=== PATIENT | male | born 1955 | race Caucasian/White ===

== ENCOUNTER 2021-03-10 08:32 | Day surgery (SDC) | payer MEDICARE ==
[2021-03-10] VITALS (17 sets, daily range): BP systolic 116–168; BP diastolic 74–106
[~2021-03-10] VITALS: Ht 190.5 cm; Wt 104.5 kg
[2021-03-10] MEDS ORDERED: albumin 25% 100mL bottle x 1 IV PRN (08:55)
[2021-03-10] MEDS ORDERED: normal saline 1000ml 1,000 ML IV PRN (09:00)
[2021-03-10] MEDS ORDERED: OLME40TA18 PO (09:18)
[2021-03-10] MEDS ORDERED: BACL10TA2 PO (09:18)
[2021-03-10] MEDS ORDERED: B-CO1TAB PO (09:18)
[2021-03-10] MEDS ORDERED: TRAM50TA2 PO (09:18)
[2021-03-10] MEDS ORDERED: FERR-119 PO (09:18)
[2021-03-10] MEDS ORDERED: POLY17PO10 PO (09:18)
[2021-03-10] MEDS ORDERED: SIMV-45 PO (09:18)
[2021-03-10] MEDS ORDERED: PRED20TA PO (09:18)
[2021-03-10] MEDS ORDERED: MULT-661 PO (09:18)
[2021-03-10] MEDS ORDERED: GABA600T13 PO (09:18)
[2021-03-10] MEDS ORDERED: APIX5TAB3 PO (09:18)
[2021-03-10] MEDS ORDERED: LACT1TAB6 PO (09:18)
[2021-03-10] MEDS ORDERED: METO200T49 PO (09:18)
[2021-03-10] MEDS ORDERED: FOLI0.4T6 PO (09:18)
[2021-03-10] MEDS ORDERED: PREG100C55 PO (09:18)
[2021-03-10] MEDS ORDERED: CALCIUM CARBONATE PO (09:18)
[2021-03-10] MEDS ORDERED: ZOLP12.543 PO (09:18)
[2021-03-10] MEDS ORDERED: FLUT1AER PO (09:18)
[2021-03-10] MEDS ORDERED: ALBU6.7H9 INH (09:18)
[2021-03-10] MEDS ORDERED: LIDOcaine 1% (10mg/ml) 2ml vial ONE (13:00)
[2021-03-10] MEDS ORDERED: midazolam 1 mg/ML 2ml injection ONE (13:00)
[2021-03-10] MEDS ORDERED: fentaNYL/PF 50MCG/1 ML 2ML syringe ONE (13:01)
== END 2021-03-10 16:45 | disposition home or self-care (01) ==
LOC: SSTAY O 08:32
PROVIDERS: ATTEND Radiology Vascular & Interventional Radiology
DX: R91.1 Solitary pulmonary nodule (principal); I10 Essential (primary) hypertension; E78.5 Hyperlipidemia, unspecified; J45.909 Unspecified asthma, uncomplicated; G62.9 Polyneuropathy, unspecified; Z86.711 Personal history of pulmonary embolism; Z86.718 Personal history of other venous thrombosis and embolism; Z96.653 Presence of artificial knee joint, bilateral; Z98.890 Other specified postprocedural states; Z79.899 Other long term (current) drug therapy; Z79.01 Long term (current) use of anticoagulants
CPT/HCPCS: 32408; 71045; 88305; 88360; 99152; 99153; J2250; J3010; J3490; 77012

== ENCOUNTER 2023-12-28 16:53 | Inpatient (IN) | payer MEDICARE ==
[~2023-12-28] VITALS: Ht 190.5 cm; Wt 110.0 kg
[~2023-12-28 16:53] MED LIST: ALBU6.7H14 INH; APIX5TAB3 PO; ASPI81TA53 PO; BACL10TA2 PO; DULO-31 PO; ESOM40CA49 PO; FLUT1AER PO; GABA-1405 PO; LACT1TAB6 PO; LOP25T PO; NORT10CA81 PO; OLME40TA18 PO; SIMV-45 PO; ZOLP12.570 PO
[2023-12-28 17:35] LABS: BASOPHILS % (AUTO) 0.1 % (0-1); EOSINOPHILS % (AUTO) 0.1 % (0-6); HEMATOCRIT 41.2 % (42.0-52.0); HEMOGLOBIN 13.9 g/dl (14.0-17.9); LYMPHOCYTES # (AUTO) 0.7 X10'3 (1.1-4.8); LYMPHOCYTES % (AUTO) 5.6 % (21-51); MEAN CORPUSCULAR HEMOGLOBIN 31.3 PG (27.0-31.0); MEAN CORPUSCULAR HGB CONC 33.7 g/dL (33.0-36.5); MEAN PLATELET VOLUME 10.4 FL (7.4-10.4); MONOCYTES # (AUTO) 0.1 X10'3 (0-0.9); MONOCYTES % (AUTO) 0.6 % (2-12); NEUTROPHILS # (AUTO) 12.1 X10'3 (1.8-7.7); NEUTROPHILS % (AUTO) 93.6 % (42-75); PLATELET COUNT 147 X10'3 (140-440); RED BLOOD COUNT 4.43 X10'6 (4.70-6.10); RED CELL DISTRIBUTION WIDTH 14.2 % (11.5-14.5); WHITE BLOOD COUNT 12.9 X10'3 (4.5-11.0)
[2023-12-28 18:17] LABS: BILIRUBIN,URINE NEGATIVE (Neg); CLARITY,URINE SLIGHTLY CLOUDY (Clear); COLOR,URINE YELLOW (Yellow); GLUCOSE, URINE >=1000 mg/dl (Neg); KETONES,URINE TRACE mg/dl (Neg); LEUKOCYTE ESTERASE ,URINE NEGATIVE (Neg); NITRITES, URINE NEGATIVE (Neg); OCCULT BLOOD,URINE LARGE (Neg); PH,URINE 5.5 (4.8-8.0); PROTEIN,URINE NEGATIVE (Neg); UROBILINOGEN,URINE 0.2 E.U/dL (0.2-1.0)
[2023-12-28 18:24] LABS: UA COLLECTION TYPE STRAIGHT CATH
[2023-12-28 18:25] LABS: SQUAMOUS EPITHELIAL CELL,UR NONE SEEN /LPF (FEW)
[2023-12-28 18:26] LABS: BACTERIA,URINE NONE SEEN /HPF (Neg); RBC,URINE 50-100 /HPF (0-2)
[2023-12-28 18:26] LABS: ALBUMIN 3.2 G/DL (3.4-5.0); ANION GAP 3 (8-16); BLOOD UREA NITROGEN 21 MG/DL (7-18); BUN/CREATININE RATIO 16.5 (10.0-20.0); CALCIUM 8.2 MG/DL (8.5-10.1); CHLORIDE 101 MMOL/L (99-107); CREATININE 1.27 MG/DL (0.60-1.10); GLUCOSE 211 MG/DL (70-104); POTASSIUM 4.8 MMOL/L (3.5-5.1); SODIUM 135 MMOL/L (135-145); TOTAL CARBON DIOXIDE 30.7 MMOL/L (24-32); eCRCL 65 ML/MIN; eGFR 56 ML/MIN
[2023-12-28 18:35] LABS: APTT 30 SECONDS (22-32); INR 1.1 INR; PROTHROMBIN TIME 11.1 SECONDS (9.0-12.0)
[2023-12-28] MEDS: CefTRIAXone 2gm/D5W 50ml BAG 50 ML IV SCH (18:59)
[2023-12-28] MEDS: normal saline 1000ML IV soln IVB ONE (18:59)
[2023-12-28] MEDS ORDERED: mag hydrox/Alum hydrox/simeth 30ml oral suspension PO PRN (21:15)
[2023-12-28] MEDS ORDERED: potassium Cl 40MEQ/1/2NS 520ml 520 ML IV PRN (21:15)
[2023-12-28] MEDS ORDERED: magnesium sulf-water 2g/50mL 50 ML IV PRN (21:15)
[2023-12-28] MEDS ORDERED: potassium Cl 20 mEq SR tablet PO PRN (21:15)
[2023-12-28] MEDS ORDERED: acetaminophen 325mg tablet PO PRN ×2 (21:15)
[2023-12-28] MEDS ORDERED: magnesium Cl slow-release 64mg tablet PO PRN (21:15)
[2023-12-28] MEDS ORDERED: HYDROcodone/acetaminophen 5mg/325mg tablet PO PRN (21:15)
[2023-12-28] MEDS ORDERED: HYDROcodone/acetaminophen 10/325mg tab PO PRN (21:15)
[2023-12-28] MEDS ORDERED: magnesium sulf-water 4G/100mL 100 ML IV PRN (21:15)
[2023-12-28] MEDS ORDERED: ondansetron/PF 4mg/2ml inj IV PRN (21:15)
[2023-12-28] MEDS: normal saline 1000ml 1,000 ML IV SCH (22:36)
[2023-12-29] VITALS (10 sets, daily range): BP systolic 129–163; BP diastolic 65–97; PULSE 60–93; RESP 16–18; TEMP 98.1–98.7; O2SAT 93–100
[2023-12-29] MEDS: normal saline 1000ml 1,000 ML IV ONE ×2 (01:49→08:45)
[2023-12-29] MEDS ORDERED: FLUT1AER INH (02:06)
[2023-12-29] MEDS ORDERED: CYAN50005 PO (02:09)
[2023-12-29] MEDS ORDERED: ADV50100 INH (02:11)
[2023-12-29] MEDS ORDERED: GABA-1405 PO (02:13)
[2023-12-29] MEDS ORDERED: INDO-12 PO (02:20)
[2023-12-29] MEDS ORDERED: NORT25CA PO (02:26)
[2023-12-29] MEDS ORDERED: METO200T37 PO (02:26)
[2023-12-29] MEDS ORDERED: OXYC10TA47 PO (02:30)
[2023-12-29] MEDS ORDERED: PREG100C56 PO (02:30)
[2023-12-29] MEDS: budesonide 0.5mg/2ml UD nebule IH SCH (07:10)
[2023-12-29] MEDS: albuterol 2.5 MG/3 ML nebule NEB SCH (07:10)
[2023-12-29 07:16] LABS: BASOPHILS % (AUTO) 0.1 % (0-1); EOSINOPHILS % (AUTO) 0 % (0-6); HEMATOCRIT 41.8 % (42.0-52.0); LYMPHOCYTES # (AUTO) 1.2 X10'3 (1.1-4.8); LYMPHOCYTES % (AUTO) 9.1 % (21-51); MEAN CORPUSCULAR HEMOGLOBIN 31.2 PG (27.0-31.0); MEAN CORPUSCULAR HGB CONC 33.6 g/dL (33.0-36.5); MEAN CORPUSCULAR VOLUME 92.9 FL (78-98); MEAN PLATELET VOLUME 9.3 FL (7.4-10.4); MONOCYTES # (AUTO) 0.2 X10'3 (0-0.9); MONOCYTES % (AUTO) 1.1 % (2-12); NEUTROPHILS # (AUTO) 11.9 X10'3 (1.8-7.7); NEUTROPHILS % (AUTO) 89.7 % (42-75); PLATELET COUNT 129 X10'3 (140-440); RED BLOOD COUNT 4.51 X10'6 (4.70-6.10); RED CELL DISTRIBUTION WIDTH 14.1 % (11.5-14.5); WHITE BLOOD COUNT 13.2 X10'3 (4.5-11.0)
[2023-12-29 07:19] LABS: INR 1.1 INR; PROTHROMBIN TIME 11.4 SECONDS (9.0-12.0)
[2023-12-29] MEDS: K and/or MAG REPLACEMENT MC SCH (08:00)
[2023-12-29] MEDS: metoprolol succinate 25mg (24-HOUR) SR. Tablet PO SCH (08:00)
[2023-12-29] MEDS ORDERED: SALMETEROL INH SCH (08:00)
[2023-12-29] MEDS ORDERED: FLUTICASONE INH SCH (08:00)
[2023-12-29 09:24] LABS: ALANINE AMINOTRANSFERASE 26 U/L (12-78); ALBUMIN 3.2 G/DL (3.4-5.0); ALBUMIN/GLOBULIN RATIO 1.1 (1.1-1.5); ALKALINE PHOSPHATASE 51 IU/L (46-116); ANION GAP 9 (8-16); ASPARTATE AMINO TRANSFERASE 13 U/L (10-37); BILIRUBIN,TOTAL 0.4 MG/DL (0.1-1.0); BLOOD UREA NITROGEN 18 MG/DL (7-18); BUN/CREATININE RATIO 17.6 (10.0-20.0); CALCIUM 8.3 MG/DL (8.5-10.1); CHLORIDE 105 MMOL/L (99-107); CREATININE 1.02 MG/DL (0.60-1.10); GLUCOSE 173 MG/DL (70-104); MAGNESIUM 2.1 MG/DL (1.5-2.4); PHOSPHORUS 2.3 MG/DL (2.3-4.5); POTASSIUM 4.1 MMOL/L (3.5-5.1); SODIUM 142 MMOL/L (135-145); TOTAL CARBON DIOXIDE 27.9 MMOL/L (24-32); TOTAL PROTEIN 6.1 G/DL (6.4-8.2); eCRCL 81 ML/MIN; eGFR 72 ML/MIN
[2023-12-29] MEDS: oxyCODONE IR 5mg (immed. release) tablet PO PRN (09:32)
[2023-12-29] MEDS: pregabalin 75mg capsule PO SCH (10:00)
[2023-12-29] MEDS: apixaban 5mg tablet PO SCH (10:00)
[2023-12-29] MEDS: pantoprazole 40mg Tablet.DR PO SCH (10:00)
[2023-12-29] MEDS: pregabalin 25mg capsule PO SCH (10:01)
[2023-12-29] MEDS: duloxetine 30mg CAPSULE.DR PO SCH (10:02)
[2023-12-29] MEDS: gabapentin 300mg capsule PO SCH (10:02)
[2023-12-29] MEDS: losartan 50mg tablet PO SCH (10:02)
[2023-12-29] MEDS: baclofen 10mg tablet PO SCH (10:03)
[2023-12-29] MEDS: ciprofloxacin lact 400MG/200ML 200 ML IV SCH (11:35)
[2023-12-29] MEDS: simvastatin 20mg tablet PO SCH (21:05)
[2023-12-29] MEDS: zolpidem 5mg tablet PO SCH (21:06)
[2023-12-30] MEDS: temazepam 15mg capsule PO ONE (02:09)
[2023-12-30 07:23] LABS: BASOPHILS % (AUTO) 0 % (0-1); EOSINOPHILS % (AUTO) 0.1 % (0-6); HEMATOCRIT 36.9 % (42.0-52.0); HEMOGLOBIN 12.4 g/dl (14.0-17.9); LYMPHOCYTES # (AUTO) 1.1 X10'3 (1.1-4.8); LYMPHOCYTES % (AUTO) 8.8 % (21-51); MEAN CORPUSCULAR HEMOGLOBIN 31.2 PG (27.0-31.0); MEAN CORPUSCULAR HGB CONC 33.6 g/dL (33.0-36.5); MEAN CORPUSCULAR VOLUME 92.8 FL (78-98); MEAN PLATELET VOLUME 10.3 FL (7.4-10.4); MONOCYTES # (AUTO) 0.8 X10'3 (0-0.9); MONOCYTES % (AUTO) 6.7 % (2-12); NEUTROPHILS # (AUTO) 10.5 X10'3 (1.8-7.7); NEUTROPHILS % (AUTO) 84.4 % (42-75); PLATELET COUNT 124 X10'3 (140-440); RED BLOOD COUNT 3.98 X10'6 (4.70-6.10); RED CELL DISTRIBUTION WIDTH 14.4 % (11.5-14.5); WHITE BLOOD COUNT 12.4 X10'3 (4.5-11.0)
[2023-12-30 08:00] VITALS: RESP 16; O2SAT 97
[2023-12-30 08:08] LABS: ALANINE AMINOTRANSFERASE 20 U/L (12-78); ALBUMIN 2.9 G/DL (3.4-5.0); ALBUMIN/GLOBULIN RATIO 1.2 (1.1-1.5); ALKALINE PHOSPHATASE 40 IU/L (46-116); ANION GAP 5 (8-16); ASPARTATE AMINO TRANSFERASE 16 U/L (10-37); BILIRUBIN,TOTAL 0.4 MG/DL (0.1-1.0); BLOOD UREA NITROGEN 15 MG/DL (7-18); BUN/CREATININE RATIO 18.5 (10.0-20.0); CHLORIDE 107 MMOL/L (99-107); CREATININE 0.81 MG/DL (0.60-1.10); GLUCOSE 154 MG/DL (70-104); MAGNESIUM 2.2 MG/DL (1.5-2.4); PHOSPHORUS 2.6 MG/DL (2.3-4.5); POTASSIUM 3.6 MMOL/L (3.5-5.1); SODIUM 140 MMOL/L (135-145); TOTAL CARBON DIOXIDE 28.1 MMOL/L (24-32); TOTAL PROTEIN 5.4 G/DL (6.4-8.2); eCRCL 101 ML/MIN; eGFR > 90 ML/MIN
[2023-12-30] MEDS: thiamine 100mg tablet PO SCH (09:21)
[2023-12-30] MEDS: folic acid 1mg tablet PO SCH (09:23)
[2023-12-30] MEDS: multivitamins, therapeutics tablet PO SCH (09:26)
[2023-12-30 10:00] VITALS: BP 151/87; PULSE 80; RESP 16; TEMP 98.1; O2SAT 97
[2023-12-30 18:00] VITALS: BP 166/99; PULSE 67; RESP 16; TEMP 98.2; O2SAT 95
[2023-12-30 20:00] VITALS: RESP 16; O2SAT 98
[2023-12-30 20:12] VITALS: PULSE 68; RESP 16; O2SAT 98
[2023-12-30 22:00] VITALS: BP 188/98; PULSE 76; RESP 16; TEMP 98.1; O2SAT 98
[2023-12-30] MEDS: hydrALAZINE 20mg/ml inj. IV PRN (23:33)
[2023-12-31 06:00] VITALS: BP 167/97; PULSE 66; RESP 16; TEMP 98.5; O2SAT 98
[2023-12-31 08:00] VITALS: RESP 16; O2SAT 98
[2023-12-31 08:02] LABS: BASOPHILS % (AUTO) 0.2 % (0-1); EOSINOPHILS # (AUTO) 0.1 X10'3 (0-0.9); EOSINOPHILS % (AUTO) 0.8 % (0-6); HEMATOCRIT 43.2 % (42.0-52.0); HEMOGLOBIN 14.7 g/dl (14.0-17.9); LYMPHOCYTES # (AUTO) 1.8 X10'3 (1.1-4.8); LYMPHOCYTES % (AUTO) 15.6 % (21-51); MEAN CORPUSCULAR HEMOGLOBIN 31.4 PG (27.0-31.0); MEAN CORPUSCULAR HGB CONC 34.1 g/dL (33.0-36.5); MEAN CORPUSCULAR VOLUME 92.2 FL (78-98); MEAN PLATELET VOLUME 9.3 FL (7.4-10.4); MONOCYTES # (AUTO) 1.2 X10'3 (0-0.9); MONOCYTES % (AUTO) 10.8 % (2-12); NEUTROPHILS # (AUTO) 8.3 X10'3 (1.8-7.7); NEUTROPHILS % (AUTO) 72.6 % (42-75); PLATELET COUNT 131 X10'3 (140-440); RED BLOOD COUNT 4.68 X10'6 (4.70-6.10); RED CELL DISTRIBUTION WIDTH 14.7 % (11.5-14.5); WHITE BLOOD COUNT 11.5 X10'3 (4.5-11.0)
[2023-12-31 08:39] LABS: ALANINE AMINOTRANSFERASE 23 U/L (12-78); ALBUMIN 3.4 G/DL (3.4-5.0); ALBUMIN/GLOBULIN RATIO 1.2 (1.1-1.5); ALKALINE PHOSPHATASE 49 IU/L (46-116); ANION GAP 7 (8-16); ASPARTATE AMINO TRANSFERASE 18 U/L (10-37); BILIRUBIN,TOTAL 0.7 MG/DL (0.1-1.0); BLOOD UREA NITROGEN 10 MG/DL (7-18); BUN/CREATININE RATIO 12.3 (10.0-20.0); CALCIUM 8.8 MG/DL (8.5-10.1); CHLORIDE 104 MMOL/L (99-107); CREATININE 0.81 MG/DL (0.60-1.10); GLUCOSE 121 MG/DL (70-104); PHOSPHORUS 2.5 MG/DL (2.3-4.5); POTASSIUM 3.1 MMOL/L (3.5-5.1); SODIUM 141 MMOL/L (135-145); TOTAL CARBON DIOXIDE 29.9 MMOL/L (24-32); TOTAL PROTEIN 6.3 G/DL (6.4-8.2); eCRCL 101 ML/MIN; eGFR > 90 ML/MIN
[2023-12-31 09:36] VITALS: PULSE 75; RESP 20; O2SAT 94
[2023-12-31 10:00] VITALS: BP 139/91; PULSE 73; RESP 16; TEMP 98.7; O2SAT 98
[2023-12-31] MEDS: potassium Cl 20 mEq SR tablet PO PRN (11:05)
[2023-12-31 12:56] VITALS: RESP 16
[2023-12-31] MEDS ORDERED: thiamine tablet PO (14:32)
[2023-12-31] MEDS ORDERED: CIPR-202 PO (14:32)
[2023-12-31] MEDS ORDERED: FOLI1TAB27 PO (14:32)
== END 2023-12-31 15:58 | disposition home health service (06) | DRG 682 ==
LOC: ER 16:53 → ED HOLD 21:18 → EDBEDREQ 12-29 05:57 → ORTHO 4S 12-29 08:25
PROVIDERS: ADMIT Internal Medicine Critical Care Medicine; ATTEND Family Medicine
DX: N17.0 Acute kidney failure with tubular necrosis (principal); G93.41 Metabolic encephalopathy; N39.0 Urinary tract infection, site not specified; S91.302A Unspecified open wound, left foot, initial encounter; S91.301A Unspecified open wound, right foot, initial encounter; G89.4 Chronic pain syndrome; Z66 Do not resuscitate; B95.2 Enterococcus as the cause of diseases classified elsewhere; X58.XXXA Exposure to other specified factors, initial encounter; Y93.89 Activity, other specified; Y92.89 Other specified places as the place of occurrence of the external cause; Y99.8 Other external cause status; Z79.01 Long term (current) use of anticoagulants; Z79.899 Other long term (current) drug therapy; Z79.82 Long term (current) use of aspirin; Z86.718 Personal history of other venous thrombosis and embolism; Z86.711 Personal history of pulmonary embolism
CPT/HCPCS: 36415; 70450; 71045; 76770; 80048; 80053; 81001; 83036; 83605; 83735; 84100; 84145; 85025; 85610; 85730; 87040; 87077; 87081; 87088; 87186; 93005; 94640; 94760; 96365; 97161; 97530; 99285; A4349; A5200; G0378; J0360; J0696; J0744; J7030

== ENCOUNTER 2024-01-23 20:49 | Inpatient (IN) | payer MEDICARE ==
[~2024-01-23] VITALS: Ht 190.5 cm; Wt 118.0 kg
[~2024-01-23 20:49] MED LIST changes: +ADV50100 INH; -ASPI81TA53 PO; +CIPR-202 PO; +CYAN50005 PO; +FLUT1AER INH; -FLUT1AER PO; +FOLI1TAB27 PO; +INDO-12 PO; -LACT1TAB6 PO; -LOP25T PO; +METO200T37 PO; -NORT10CA81 PO; +NORT25CA PO; +OXYC10TA47 PO; +PREG100C56 PO; +thiamine tablet PO
[2024-01-23 21:33] LABS: BASOPHILS % (AUTO) 0.3 % (0-1); EOSINOPHILS # (AUTO) 0.1 X10'3 (0-0.9); EOSINOPHILS % (AUTO) 1.1 % (0-6); HEMATOCRIT 42.5 % (42.0-52.0); HEMOGLOBIN 14.3 g/dl (14.0-17.9); LYMPHOCYTES # (AUTO) 1.2 X10'3 (1.1-4.8); LYMPHOCYTES % (AUTO) 9.9 % (21-51); MEAN CORPUSCULAR HEMOGLOBIN 31.1 PG (27.0-31.0); MEAN CORPUSCULAR HGB CONC 33.6 g/dL (33.0-36.5); MEAN CORPUSCULAR VOLUME 92.7 FL (78-98); MEAN PLATELET VOLUME 9.1 FL (7.4-10.4); MONOCYTES # (AUTO) 1.2 X10'3 (0-0.9); MONOCYTES % (AUTO) 9.8 % (2-12); NEUTROPHILS # (AUTO) 9.4 X10'3 (1.8-7.7); NEUTROPHILS % (AUTO) 78.9 % (42-75); PLATELET COUNT 140 X10'3 (140-440); RED BLOOD COUNT 4.58 X10'6 (4.70-6.10); RED CELL DISTRIBUTION WIDTH 14.3 % (11.5-14.5); WHITE BLOOD COUNT 11.9 X10'3 (4.5-11.0)
[2024-01-23 21:40] LABS: ALBUMIN 3.4 G/DL (3.4-5.0); ANION GAP 4 (8-16); BLOOD UREA NITROGEN 18 MG/DL (7-18); BUN/CREATININE RATIO 14.4 (10.0-20.0); CALCIUM 8.4 MG/DL (8.5-10.1); CHLORIDE 103 MMOL/L (99-107); CREATININE 1.25 MG/DL (0.60-1.10); GLUCOSE 104 MG/DL (70-104); POTASSIUM 4.2 MMOL/L (3.5-5.1); SODIUM 140 MMOL/L (135-145); TOTAL CARBON DIOXIDE 32.6 MMOL/L (24-32); eCRCL 66 ML/MIN; eGFR 57 ML/MIN
[2024-01-23] MEDS: normal saline 1000ml 1,000 ML IV ONE (21:41)
[2024-01-23] MEDS: acetaminophen 1,000mg/100ml IV 100 ML IV ONE (21:43)
[2024-01-23] MEDS: CefTRIAXone/D5W-Rocephin 1gm 50 ML IV ONE (22:38)
[2024-01-23] MEDS: LidoCAINE 2% Topical Jelly 11mL syringe (UROJET) TOP ONE (23:38)
[2024-01-24 00:01] LABS: BILIRUBIN,URINE NEGATIVE (Neg); CLARITY,URINE CLEAR (Clear); COLOR,URINE YELLOW (Yellow); GLUCOSE, URINE NEGATIVE (Neg); KETONES,URINE TRACE mg/dl (Neg); LEUKOCYTE ESTERASE ,URINE NEGATIVE (Neg); NITRITES, URINE NEGATIVE (Neg); OCCULT BLOOD,URINE MODERATE (Neg); PROTEIN,URINE NEGATIVE (Neg); UROBILINOGEN,URINE 0.2 E.U/dL (0.2-1.0)
[2024-01-24 00:23] LABS: UA COLLECTION TYPE NON-SPECIFIED
[2024-01-24 00:24] LABS: BACTERIA,URINE FEW /HPF (Neg); RBC,URINE 20-50 /HPF (0-2); SQUAMOUS EPITHELIAL CELL,UR FEW /LPF (FEW); WBC,URINE 0-4 /HPF (0-4)
[2024-01-24] MEDS ORDERED: magnesium hydroxide 30ml (MOM) UD suspension PO PRN (04:25)
[2024-01-24] MEDS ORDERED: acetaminophen 325mg tablet PO PRN (04:25)
[2024-01-24] MEDS ORDERED: magnesium sulf-water 4G/100mL 100 ML IV PRN (04:25)
[2024-01-24] MEDS ORDERED: potassium Cl 40MEQ/1/2NS 520ml 520 ML IV PRN (04:25)
[2024-01-24] MEDS ORDERED: magnesium sulf-water 2g/50mL 50 ML IV PRN (04:25)
[2024-01-24] MEDS ORDERED: potassium Cl 20 mEq SR tablet PO PRN (04:25)
[2024-01-24] MEDS ORDERED: mag hydrox/Alum hydrox/simeth 30ml oral suspension PO PRN (04:25)
[2024-01-24] MEDS ORDERED: ondansetron/PF 4mg/2ml inj IV PRN (04:25)
[2024-01-24] MEDS ORDERED: magnesium Cl slow-release 64mg tablet PO PRN (04:25)
[2024-01-24] MEDS: K and/or MAG REPLACEMENT MC SCH (07:58)
[2024-01-24] MEDS: docusate sod 100mg capsule PO SCH (07:59)
[2024-01-24] MEDS: apixaban 5mg tablet PO SCH (08:10)
[2024-01-24] MEDS: azithromycin/NS 500mg/250ml 250 ML IV SCH (08:10)
[2024-01-24] MEDS: baclofen 10mg tablet PO SCH (08:10)
[2024-01-24 08:53] LABS: ETHANOL < 10 MG/DL (<10); THYROID STIMULATING HORMONE 0.49 ulU/ml (0.34-4.50)
[2024-01-24 12:17] VITALS: PULSE 90; RESP 18; O2SAT 95
[2024-01-24 14:10] LABS: URINE AMPHETAMINE SCREEN NEGATIVE (Neg); URINE BARBITUATE SCREEN NEGATIVE (Neg); URINE BENZODIAZEPINES SCREEN NEGATIVE (Neg); URINE CANNABINOID SCREEN POSITIVE (Neg); URINE COCAINE SCREEN NEGATIVE (Neg); URINE METHADONE SCREEN NEGATIVE (Neg); URINE OPIATE SCREEN POSITIVE (Neg); URINE PHENCYCLIDINE SCREEN NEGATIVE (Neg)
[2024-01-24] MEDS ORDERED: GABA-1405 PO (15:11)
[2024-01-24] MEDS: gabapentin 300mg capsule PO SCH (17:15)
[2024-01-24 17:32] VITALS: BP 147/76; PULSE 101; RESP 18; TEMP 98.5; O2SAT 96
[2024-01-24 20:00] VITALS: RESP 18; O2SAT 96
[2024-01-24] MEDS ORDERED: SALMETEROL INH SCH (20:00)
[2024-01-24] MEDS ORDERED: FLUTICASONE INH SCH (20:00)
[2024-01-24] MEDS ORDERED: non-formulary drug (Albuterol Sulfate (Proventil Hfa) 2 PUFFS) INH SCH (20:00)
[2024-01-24] MEDS: CefTRIAXone/D5W-Rocephin 1gm 50 ML IV SCH (20:13)
[2024-01-24] MEDS: oxyCODONE IR 5mg (immed. release) tablet PO PRN (20:15)
[2024-01-24] MEDS: zolpidem 5mg tablet PO SCH (20:16)
[2024-01-24] MEDS: pregabalin 75mg capsule PO SCH (20:16)
[2024-01-24] MEDS: nortriptyline 25mg capsule PO SCH (20:18)
[2024-01-24] MEDS: pregabalin 25mg capsule PO SCH (20:18)
[2024-01-24] MEDS: simvastatin 20mg tablet PO SCH (20:19)
[2024-01-24] MEDS ORDERED: baclofen 10mg tablet PO SCH (21:00)
[2024-01-24 21:23] VITALS: PULSE 98; RESP 20; O2SAT 94
[2024-01-24] MEDS: ipratropium/albuterol 3ml nebule NEB PRN (21:23)
[2024-01-24 21:30] VITALS: PULSE 100; RESP 16
[2024-01-24 22:00] VITALS: BP 136/64; PULSE 129; RESP 20; TEMP 99.8; O2SAT 96
[2024-01-25] VITALS (7 sets, daily range): BP systolic 114–130; BP diastolic 76–85; PULSE 64–102; RESP 15–17; TEMP 97.4–98.4; O2SAT 94–96
[2024-01-25 06:45] LABS: ALBUMIN 2.8 G/DL (3.4-5.0); ANION GAP 6 (8-16); BLOOD UREA NITROGEN 13 MG/DL (7-18); BUN/CREATININE RATIO 13.5 (10.0-20.0); CALCIUM 8.5 MG/DL (8.5-10.1); CHLORIDE 107 MMOL/L (99-107); CREATININE 0.96 MG/DL (0.60-1.10); GLUCOSE 112 MG/DL (70-104); MAGNESIUM 1.9 MG/DL (1.5-2.4); SODIUM 145 MMOL/L (135-145); TOTAL CARBON DIOXIDE 31.9 MMOL/L (24-32); eCRCL 86 ML/MIN; eGFR 77 ML/MIN
[2024-01-25 06:48] LABS: BASOPHILS % (AUTO) 0.2 % (0-1); EOSINOPHILS # (AUTO) 0.2 X10'3 (0-0.9); EOSINOPHILS % (AUTO) 1.4 % (0-6); HEMATOCRIT 38.3 % (42.0-52.0); HEMOGLOBIN 12.8 g/dl (14.0-17.9); LYMPHOCYTES # (AUTO) 1.5 X10'3 (1.1-4.8); LYMPHOCYTES % (AUTO) 10.8 % (21-51); MEAN CORPUSCULAR HEMOGLOBIN 30.7 PG (27.0-31.0); MEAN CORPUSCULAR HGB CONC 33.3 g/dL (33.0-36.5); MEAN CORPUSCULAR VOLUME 92.1 FL (78-98); MEAN PLATELET VOLUME 9.2 FL (7.4-10.4); MONOCYTES # (AUTO) 1.4 X10'3 (0-0.9); NEUTROPHILS # (AUTO) 10.6 X10'3 (1.8-7.7); NEUTROPHILS % (AUTO) 77.6 % (42-75); PLATELET COUNT 129 X10'3 (140-440); RED BLOOD COUNT 4.16 X10'6 (4.70-6.10); RED CELL DISTRIBUTION WIDTH 14.2 % (11.5-14.5); WHITE BLOOD COUNT 13.7 X10'3 (4.5-11.0)
[2024-01-25 07:11] LABS: POTASSIUM 3.4 MMOL/L (3.5-5.1)
[2024-01-25] MEDS: metoprolol succinate 25mg (24-HOUR) SR. Tablet PO SCH (09:17)
[2024-01-25] MEDS: pantoprazole 40mg Tablet.DR PO SCH (09:17)
[2024-01-25] MEDS: losartan 50mg tablet PO SCH (09:19)
[2024-01-25] MEDS: duloxetine 30mg CAPSULE.DR PO SCH (09:28)
[2024-01-25] MEDS: potassium Cl 20 mEq SR tablet PO PRN (10:46)
[2024-01-25] MEDS: FLUTICASONE IH SCH (12:29)
[2024-01-25] MEDS: VILANTEROL IH SCH (12:29)
[2024-01-26] VITALS (8 sets, daily range): BP systolic 125–166; BP diastolic 74–91; PULSE 78–89; RESP 16–18; TEMP 97.9–99.3; O2SAT 94–97
[2024-01-26 07:15] LABS: BASOPHILS % (AUTO) 0.3 % (0-1); EOSINOPHILS # (AUTO) 0.3 X10'3 (0-0.9); EOSINOPHILS % (AUTO) 2.2 % (0-6); HEMATOCRIT 38.1 % (42.0-52.0); HEMOGLOBIN 12.9 g/dl (14.0-17.9); LYMPHOCYTES # (AUTO) 1.7 X10'3 (1.1-4.8); LYMPHOCYTES % (AUTO) 14.9 % (21-51); MEAN CORPUSCULAR HEMOGLOBIN 31.1 PG (27.0-31.0); MEAN CORPUSCULAR HGB CONC 33.9 g/dL (33.0-36.5); MEAN CORPUSCULAR VOLUME 91.8 FL (78-98); MEAN PLATELET VOLUME 9.5 FL (7.4-10.4); MONOCYTES # (AUTO) 1.1 X10'3 (0-0.9); MONOCYTES % (AUTO) 9.6 % (2-12); NEUTROPHILS # (AUTO) 8.3 X10'3 (1.8-7.7); PLATELET COUNT 133 X10'3 (140-440); RED BLOOD COUNT 4.15 X10'6 (4.70-6.10); WHITE BLOOD COUNT 11.4 X10'3 (4.5-11.0)
[2024-01-26 07:18] LABS: ALBUMIN 2.6 G/DL (3.4-5.0); ANION GAP 8 (8-16); BLOOD UREA NITROGEN 10 MG/DL (7-18); BUN/CREATININE RATIO 11.9 (10.0-20.0); CALCIUM 8.6 MG/DL (8.5-10.1); CHLORIDE 108 MMOL/L (99-107); CREATININE 0.84 MG/DL (0.60-1.10); GLUCOSE 122 MG/DL (70-104); MAGNESIUM 1.9 MG/DL (1.5-2.4); SODIUM 145 MMOL/L (135-145); TOTAL CARBON DIOXIDE 29.2 MMOL/L (24-32); eCRCL 98 ML/MIN; eGFR 90 ML/MIN
[2024-01-26 07:28] LABS: POTASSIUM 3.8 MMOL/L (3.5-5.1)
[2024-01-26] MEDS ORDERED: methylPREDNISolone sod succ 125mg/2ml vial IV ONE (20:45)
[2024-01-26] MEDS: methylPREDNISolone SOD SUCC 1000 MG in D5W 50ml IVPB (58ML) IV ONE (21:54)
[2024-01-27] VITALS (8 sets, daily range): BP systolic 131–177; BP diastolic 78–96; PULSE 71–88; RESP 14–20; TEMP 97.2–98.5; O2SAT 91–99
[2024-01-27 07:11] LABS: BASOPHILS % (AUTO) 0.1 % (0-1); EOSINOPHILS % (AUTO) 0.1 % (0-6); HEMATOCRIT 41.4 % (42.0-52.0); HEMOGLOBIN 14.2 g/dl (14.0-17.9); LYMPHOCYTES % (AUTO) 12.9 % (21-51); MEAN CORPUSCULAR HEMOGLOBIN 31.1 PG (27.0-31.0); MEAN CORPUSCULAR HGB CONC 34.4 g/dL (33.0-36.5); MEAN CORPUSCULAR VOLUME 90.3 FL (78-98); MEAN PLATELET VOLUME 9.3 FL (7.4-10.4); MONOCYTES # (AUTO) 0.1 X10'3 (0-0.9); MONOCYTES % (AUTO) 1.1 % (2-12); NEUTROPHILS # (AUTO) 6.5 X10'3 (1.8-7.7); NEUTROPHILS % (AUTO) 85.8 % (42-75); PLATELET COUNT 172 X10'3 (140-440); RED BLOOD COUNT 4.58 X10'6 (4.70-6.10); RED CELL DISTRIBUTION WIDTH 13.5 % (11.5-14.5); WHITE BLOOD COUNT 7.5 X10'3 (4.5-11.0)
[2024-01-27 07:26] LABS: ALBUMIN 2.8 G/DL (3.4-5.0); ANION GAP 6 (8-16); BLOOD UREA NITROGEN 12 MG/DL (7-18); BUN/CREATININE RATIO 11.5 (10.0-20.0); CALCIUM 8.8 MG/DL (8.5-10.1); CHLORIDE 105 MMOL/L (99-107); CREATININE 1.04 MG/DL (0.60-1.10); GLUCOSE 234 MG/DL (70-104); MAGNESIUM 1.9 MG/DL (1.5-2.4); POTASSIUM 4.4 MMOL/L (3.5-5.1); SODIUM 141 MMOL/L (135-145); TOTAL CARBON DIOXIDE 30.1 MMOL/L (24-32); eCRCL 79 ML/MIN; eGFR 71 ML/MIN
[2024-01-27] MEDS ORDERED: AMOX-580 PO (12:42)
[2024-01-27] MEDS: oxyCODONE IR 5mg (immed. release) tablet PO PRN (15:58)
[2024-01-28 07:21] LABS: BASOPHILS % (AUTO) 0.1 % (0-1); EOSINOPHILS % (AUTO) 0 % (0-6); HEMATOCRIT 42.9 % (42.0-52.0); HEMOGLOBIN 14.7 g/dl (14.0-17.9); LYMPHOCYTES # (AUTO) 1.6 X10'3 (1.1-4.8); LYMPHOCYTES % (AUTO) 10.9 % (21-51); MEAN CORPUSCULAR HEMOGLOBIN 30.6 PG (27.0-31.0); MEAN CORPUSCULAR HGB CONC 34.2 g/dL (33.0-36.5); MEAN CORPUSCULAR VOLUME 89.5 FL (78-98); MEAN PLATELET VOLUME 9.9 FL (7.4-10.4); MONOCYTES # (AUTO) 0.8 X10'3 (0-0.9); MONOCYTES % (AUTO) 5.9 % (2-12); NEUTROPHILS # (AUTO) 11.8 X10'3 (1.8-7.7); NEUTROPHILS % (AUTO) 83.1 % (42-75); PLATELET COUNT 192 X10'3 (140-440); RED BLOOD COUNT 4.79 X10'6 (4.70-6.10); RED CELL DISTRIBUTION WIDTH 14.6 % (11.5-14.5); WHITE BLOOD COUNT 14.2 X10'3 (4.5-11.0)
[2024-01-28 07:58] LABS: ALBUMIN 2.9 G/DL (3.4-5.0); ANION GAP 9 (8-16); BLOOD UREA NITROGEN 19 MG/DL (7-18); BUN/CREATININE RATIO 21.1 (10.0-20.0); CALCIUM 8.9 MG/DL (8.5-10.1); CHLORIDE 106 MMOL/L (99-107); GLUCOSE 172 MG/DL (70-104); POTASSIUM 3.8 MMOL/L (3.5-5.1); SODIUM 143 MMOL/L (135-145); eCRCL 91 ML/MIN; eGFR 83 ML/MIN
[2024-01-28 09:06] VITALS: BP_SYST 150; PULSE 77
== END 2024-01-28 10:00 | disposition home or self-care (01) | DRG 871 ==
LOC: ER 20:49 → UNDOADMIN 01-24 04:30 → ED HOLD 01-24 04:30 → ORTHO 4S 01-24 17:29
PROVIDERS: ADMIT Internal Medicine Critical Care Medicine; ATTEND Family Medicine
DX: A41.9 Sepsis, unspecified organism (principal); G93.41 Metabolic encephalopathy; J18.9 Pneumonia, unspecified organism; J44.0 Chronic obstructive pulmonary disease with (acute) lower respiratory infection; G61.81 Chronic inflammatory demyelinating polyneuritis; Z66 Do not resuscitate; F32.A Depression, unspecified; Z20.822 Contact with and (suspected) exposure to COVID-19; G89.4 Chronic pain syndrome; Z79.01 Long term (current) use of anticoagulants; Z79.899 Other long term (current) drug therapy; Z86.718 Personal history of other venous thrombosis and embolism; Z86.711 Personal history of pulmonary embolism
CPT/HCPCS: 36415; 70450; 71045; 80048; 80305; 80320; 81001; 81003; 82140; 83605; 83735; 84132; 84145; 84443; 85025; 87040; 87081; 87502; 87503; 87811; 93005; 94640; 94760; 97161; 97530; 99285; A6590; C1758; G0378; J0131; J0456; J0696; J2919; J7030; J7060

== ENCOUNTER 2024-02-29 10:55 | Inpatient (IN) | payer MEDICARE ==
[~2024-02-29] VITALS: Ht 190.5 cm; Wt 113.7 kg
[~2024-02-29 10:55] MED LIST changes: -CIPR-202 PO
[2024-02-29 12:03] LABS: BASOPHILS % (AUTO) 0.3 % (0-1); EOSINOPHILS # (AUTO) 0.2 X10'3 (0-0.9); EOSINOPHILS % (AUTO) 2.6 % (0-6); HEMATOCRIT 43.3 % (42.0-52.0); HEMOGLOBIN 14.5 g/dl (14.0-17.9); MEAN CORPUSCULAR HEMOGLOBIN 30.6 PG (27.0-31.0); MEAN CORPUSCULAR HGB CONC 33.4 g/dL (33.0-36.5); MEAN CORPUSCULAR VOLUME 91.6 FL (78-98); MEAN PLATELET VOLUME 8.9 FL (7.4-10.4); MONOCYTES # (AUTO) 0.6 X10'3 (0-0.9); MONOCYTES % (AUTO) 6.9 % (2-12); NEUTROPHILS # (AUTO) 6.1 X10'3 (1.8-7.7); NEUTROPHILS % (AUTO) 68.2 % (42-75); PLATELET COUNT 126 X10'3 (140-440); RED BLOOD COUNT 4.73 X10'6 (4.70-6.10); RED CELL DISTRIBUTION WIDTH 14.6 % (11.5-14.5)
[2024-02-29 12:16] LABS: ALBUMIN 3.7 G/DL (3.4-5.0); ANION GAP 5 (8-16); BLOOD UREA NITROGEN 28 MG/DL (7-18); BUN/CREATININE RATIO 16.7 (10.0-20.0); CALCIUM 9.2 MG/DL (8.5-10.1); CHLORIDE 104 MMOL/L (99-107); CREATININE 1.68 MG/DL (0.60-1.10); GLUCOSE 103 MG/DL (70-104); POTASSIUM 4.3 MMOL/L (3.5-5.1); SODIUM 141 MMOL/L (135-145); TOTAL CARBON DIOXIDE 32.3 MMOL/L (24-32); eCRCL 49 ML/MIN; eGFR 41 ML/MIN
[2024-02-29] MEDS: normal saline 1000ML IV soln IVB ONE (13:17)
[2024-02-29 14:03] LABS: BILIRUBIN,URINE NEGATIVE (Neg); CLARITY,URINE CLEAR (Clear); COLOR,URINE YELLOW (Yellow); GLUCOSE, URINE NEGATIVE (Neg); KETONES,URINE NEGATIVE (Neg); LEUKOCYTE ESTERASE ,URINE NEGATIVE (Neg); NITRITES, URINE NEGATIVE (Neg); OCCULT BLOOD,URINE NEGATIVE (Neg); PH,URINE 5.5 (4.8-8.0); PROTEIN,URINE NEGATIVE (Neg); UROBILINOGEN,URINE 0.2 E.U/dL (0.2-1.0)
[2024-02-29 14:08] LABS: UA COLLECTION TYPE URINAL
[2024-02-29] MEDS ORDERED: potassium Cl 20 mEq SR tablet PO PRN ×2 (16:55)
[2024-02-29] MEDS ORDERED: potassium Cl 40MEQ/1/2NS 520ml 520 ML IV PRN (16:55)
[2024-02-29] MEDS ORDERED: magnesium sulf-water 4G/100mL 100 ML IV PRN (16:55)
[2024-02-29] MEDS ORDERED: magnesium Cl slow-release 64mg tablet PO PRN (16:55)
[2024-02-29] MEDS ORDERED: acetaminophen 325mg tablet PO PRN (16:55)
[2024-02-29] MEDS ORDERED: ondansetron/PF 4mg/2ml inj IV PRN (16:55)
[2024-02-29] MEDS ORDERED: magnesium sulf-water 2g/50mL 50 ML IV PRN (16:55)
[2024-02-29] MEDS ORDERED: bisacodyl 10mg suppository rectal RC PRN (16:55)
[2024-02-29] MEDS ORDERED: magnesium hydroxide 30ml (MOM) UD suspension PO PRN (16:55)
[2024-02-29] MEDS: normal saline 1000ml 1,000 ML IV SCH (16:55)
[2024-02-29] MEDS ORDERED: morphine 2 MG/ML inj. syringe IV PRN (16:55)
[2024-02-29] MEDS: lisinopril 10 MG tablet PO ONE (17:35)
[2024-02-29 22:07] VITALS: BP 168/114; PULSE 60; RESP 16; TEMP 97.9; O2SAT 98
[2024-02-29] MEDS: heparin, porcine 5000 units/ml vial SQ SCH (23:15)
[2024-02-29] MEDS: acetaminophen 325mg tablet PO SCH (23:15)
[2024-03-01] MEDS: HYDROcodone/acetaminophen 5mg/325mg tablet PO PRN (04:22)
[2024-03-01 06:00] VITALS: BP 172/88; PULSE 80; RESP 16; TEMP 98.2; O2SAT 99
[2024-03-01 07:40] LABS: BASOPHILS % (AUTO) 0.5 % (0-1); EOSINOPHILS # (AUTO) 0.2 X10'3 (0-0.9); EOSINOPHILS % (AUTO) 2.8 % (0-6); HEMATOCRIT 41.3 % (42.0-52.0); LYMPHOCYTES % (AUTO) 27.6 % (21-51); MEAN CORPUSCULAR HEMOGLOBIN 30.6 PG (27.0-31.0); MEAN CORPUSCULAR HGB CONC 33.7 g/dL (33.0-36.5); MEAN CORPUSCULAR VOLUME 90.6 FL (78-98); MEAN PLATELET VOLUME 9.3 FL (7.4-10.4); MONOCYTES # (AUTO) 0.5 X10'3 (0-0.9); MONOCYTES % (AUTO) 6.5 % (2-12); NEUTROPHILS # (AUTO) 4.5 X10'3 (1.8-7.7); NEUTROPHILS % (AUTO) 62.6 % (42-75); PLATELET COUNT 131 X10'3 (140-440); RED BLOOD COUNT 4.56 X10'6 (4.70-6.10); RED CELL DISTRIBUTION WIDTH 14.5 % (11.5-14.5); WHITE BLOOD COUNT 7.2 X10'3 (4.5-11.0)
[2024-03-01 07:41] LABS: ALANINE AMINOTRANSFERASE 32 U/L (12-78); ALBUMIN 3.2 G/DL (3.4-5.0); ALBUMIN/GLOBULIN RATIO 1.2 (1.1-1.5); ALKALINE PHOSPHATASE 58 IU/L (46-116); ANION GAP 6 (8-16); ASPARTATE AMINO TRANSFERASE 33 U/L (10-37); BILIRUBIN,TOTAL 0.5 MG/DL (0.1-1.0); BLOOD UREA NITROGEN 17 MG/DL (7-18); BUN/CREATININE RATIO 16.3 (10.0-20.0); CALCIUM 8.6 MG/DL (8.5-10.1); CHLORIDE 109 MMOL/L (99-107); CREATININE 1.04 MG/DL (0.60-1.10); GLUCOSE 108 MG/DL (70-104); POTASSIUM 4.1 MMOL/L (3.5-5.1); SODIUM 144 MMOL/L (135-145); TOTAL PROTEIN 5.8 G/DL (6.4-8.2); eCRCL 79 ML/MIN; eGFR 71 ML/MIN
[2024-03-01 10:00] VITALS: BP 151/88; PULSE 85; RESP 17; TEMP 98.7; O2SAT 99
[2024-03-01] MEDS ORDERED: budesonide 0.5mg/2ml UD nebule IH PRN (10:20)
[2024-03-01] MEDS ORDERED: ARIP2TAB67 PO (12:07)
[2024-03-01] MEDS: LORazepam 2 mg/ml vial IV ONE (13:45)
[2024-03-01] MEDS ORDERED: albuterol 2.5 MG/3 ML nebule NEB PRN (14:00)
[2024-03-01] MEDS: metoprolol succinate 25mg (24-HOUR) SR. Tablet PO SCH (14:36)
[2024-03-01] MEDS: duloxetine 30mg CAPSULE.DR PO SCH (14:36)
[2024-03-01] MEDS: pregabalin 75mg capsule PO SCH (14:36)
[2024-03-01] MEDS ORDERED: GADOTERATE MEGLUMINE 7.5 MMOL/15 ML VIAL IV ONE (17:31)
[2024-03-01 18:00] VITALS: BP 186/98; PULSE 80; RESP 17; TEMP 98.7; O2SAT 96
[2024-03-01 18:20] VITALS: PULSE 80; RESP 17; O2SAT 96
[2024-03-01] MEDS: apixaban 5mg tablet PO SCH (20:27)
[2024-03-01] MEDS: simvastatin 20mg tablet PO SCH (20:27)
[2024-03-01] MEDS: zolpidem 5mg tablet PO PRN (20:42)
[2024-03-01 22:00] VITALS: BP 162/81; PULSE 77; RESP 16; TEMP 97.9; O2SAT 92
[2024-03-02] MEDS: VANCOMYCIN 1GM 200ML H20 (PEG) 200 ML IV SCH (02:16)
[2024-03-02 06:00] VITALS: BP 160/99; PULSE 82; RESP 16; TEMP 97.9; O2SAT 95
[2024-03-02 06:38] LABS: BASOPHILS % (AUTO) 0.4 % (0-1); EOSINOPHILS # (AUTO) 0.1 X10'3 (0-0.9); EOSINOPHILS % (AUTO) 1.3 % (0-6); HEMATOCRIT 41.6 % (42.0-52.0); LYMPHOCYTES # (AUTO) 1.8 X10'3 (1.1-4.8); LYMPHOCYTES % (AUTO) 22.2 % (21-51); MEAN CORPUSCULAR HEMOGLOBIN 30.5 PG (27.0-31.0); MEAN CORPUSCULAR HGB CONC 33.8 g/dL (33.0-36.5); MEAN CORPUSCULAR VOLUME 90.3 FL (78-98); MEAN PLATELET VOLUME 8.4 FL (7.4-10.4); MONOCYTES # (AUTO) 0.5 X10'3 (0-0.9); MONOCYTES % (AUTO) 6.5 % (2-12); NEUTROPHILS # (AUTO) 5.7 X10'3 (1.8-7.7); NEUTROPHILS % (AUTO) 69.6 % (42-75); PLATELET COUNT 133 X10'3 (140-440); RED CELL DISTRIBUTION WIDTH 14.6 % (11.5-14.5); WHITE BLOOD COUNT 8.2 X10'3 (4.5-11.0)
[2024-03-02 06:58] LABS: ALANINE AMINOTRANSFERASE 31 U/L (12-78); ALBUMIN 3.4 G/DL (3.4-5.0); ALBUMIN/GLOBULIN RATIO 1.4 (1.1-1.5); ALKALINE PHOSPHATASE 57 IU/L (46-116); ANION GAP 9 (8-16); ASPARTATE AMINO TRANSFERASE 26 U/L (10-37); BILIRUBIN,TOTAL 0.8 MG/DL (0.1-1.0); BLOOD UREA NITROGEN 8 MG/DL (7-18); BUN/CREATININE RATIO 10.1 (10.0-20.0); CALCIUM 8.6 MG/DL (8.5-10.1); CHLORIDE 108 MMOL/L (99-107); CREATININE 0.79 MG/DL (0.60-1.10); GLUCOSE 118 MG/DL (70-104); POTASSIUM 3.5 MMOL/L (3.5-5.1); SODIUM 143 MMOL/L (135-145); TOTAL CARBON DIOXIDE 26.5 MMOL/L (24-32); TOTAL PROTEIN 5.9 G/DL (6.4-8.2); eCRCL 104 ML/MIN; eGFR > 90 ML/MIN
[2024-03-02] MEDS: pantoprazole 40mg Tablet.DR PO SCH (07:42)
[2024-03-02] MEDS: folic acid 1mg tablet PO SCH (07:43)
[2024-03-02 07:44] VITALS: BP_SYST 160; PULSE 82
[2024-03-02] MEDS: losartan 50mg tablet PO SCH (07:44)
[2024-03-02 08:00] VITALS: RESP 16; O2SAT 95
[2024-03-02] MEDS ORDERED: non-formulary drug (Fluticasone/Vilanterol (Breo Ellipta 100-25 Mcg INH) 1 PUFFS) INH SCH (08:00)
[2024-03-02] MEDS ORDERED: VANCOMYCIN 1GM 200ML H20 (PEG) 200 ML IV SCH (13:00)
[2024-03-02 13:10] LABS: ANTINUCLEAR ANTIBODIES Negative (Negative)
[2024-03-03] MEDS ORDERED: VANCOMYCIN LEVEL IV ONE (04:30)
[2024-03-05 17:08] LABS: ATYPICAL PANCA <1:20 titer (Neg:<1:20); CYTOPLASMIC (C-ANCA) <1:20 titer (Neg:<1:20); PERINUCLEAR (P-ANCA) <1:20 titer (Neg:<1:20)
== END 2024-03-02 14:15 | disposition home or self-care (01) | DRG 91 ==
LOC: ER 10:55 → ED HOLD 17:03 → EDBEDREQTM 21:25 → ORTHO 4S 22:00
PROVIDERS: ADMIT Internal Medicine; ATTEND Internal Medicine
DX: G92.8 Other toxic encephalopathy (principal); N17.0 Acute kidney failure with tubular necrosis; G61.81 Chronic inflammatory demyelinating polyneuritis; I10 Essential (primary) hypertension; F32.A Depression, unspecified; G89.4 Chronic pain syndrome; Z96.653 Presence of artificial knee joint, bilateral; F03.90 Unspecified dementia, unspecified severity, without behavioral disturbance, psychotic disturbance, mood disturbance, and anxiety; J44.9 Chronic obstructive pulmonary disease, unspecified; Z79.01 Long term (current) use of anticoagulants; Z79.899 Other long term (current) drug therapy; Z95.1 Presence of aortocoronary bypass graft; Z99.3 Dependence on wheelchair; Z86.718 Personal history of other venous thrombosis and embolism; Z86.711 Personal history of pulmonary embolism
CPT/HCPCS: 36415; 70544; 70553; 71045; 80048; 80053; 81003; 82607; 82948; 83605; 84145; 85025; 85651; 86038; 86256; 87040; 87077; 87081; 87186; 93005; 93971; 94760; 97161; 97530; 99285; A6222; A6258; A6446; A6449; A6590; A9575; G0378; J1644; J2060; J3372; J7030